=== PATIENT | female | born 1965 | race Two or more races ===

== ENCOUNTER 2018-12-17 21:32 | Emergency (ER) | payer OTHER ==
[~2018-12-17] VITALS: Ht 157.5 cm; Wt 88.9 kg
--- OUTSIDE RECORDS SUMMARY | ~2018-12-17 | XMS | Encounter Summary ---
Demographics + + + | Address | [address] | | | [place] [address] | + + + | Home Phone | | + + + | Preferred Language | Unknown | + + + | Marital Status | | + + + | Mormonism Affiliation | Unknown | + + + | Race | Unknown | + + + | Ethnic Group | Unknown | + + + Author + + + | Author | [facility] | + + + | Organization | [facility] | + + + | Address | Unknown | + + + | Phone | Unavailable | + + + Support + + +---------+ + | Name | Relationship | Address | Phone | + + +---------+ + | Bin Schultz | ECON | Unknown | | + + +---------+ + Care Team Providers + +------+ + | Care Vocational Education Teacher Name | Role | Phone | + +------+ + | Jesús Ivy DO | PCP | | + +------+ + Reason for Visit +--------+ + | Reason | Comments | +--------+ + | Other | | +--------+ + Consult and Treat (Routine) + +--------+ + + + + | Status | Reason | Specialty | Diagnoses / | Referred By | Referred To | | | | | Procedures | Contact | Contact | + +--------+ + + + + | Authorized | | Dermatology / | Diagnoses | [facility] | [facility] | | | | Plastic | Urticaria, | Jesús Garduno DO | Surgery [address] | | | | Surgery | unspecified | [address] | [place] | | | | | | [address] | [address] | | | | | | [address] | [place], [place] | | | | | | [place], | [address] | | | | | | [place] | Phone: | | | | | | [address] | [phone] | | | | | | Phone: | Fax: | | | | | | [phone] | [phone] | | | | | | Fax: | | | | | | | [phone] | | + +--------+ + + + + Encounter Details +--------+---------+ + + + | Date | Type | Department | Care Team | Description | +--------+---------+ + + + | 11/06/ | Office | [facility] | Heavenly Woodruff | Seborrheic | | 2019 | Visit | Plastic Surgery and | [address] | dermatitis (Primary | | | | Dermatology [address] | [address] | Dx); Atopic | | | | [address] | [place] [address] | dermatitis, | | | | [place], [place] | [phone] | unspecified type | | | | [address] | | | | | | [phone] | | | +--------+---------+ + + + Social History + +-------+ +--------+------+ | Tobacco Use | Types | Packs/Day | Years | Date | | | | | Used | | + +-------+ +--------+------+ | Never Assessed | | | | | + +-------+ +--------+------+ + + + | Sex Assigned at | Date Recorded | | | | + + + | Not on file | | + + + as of this encounter Last Filed Vital Signs + + + + | Vital Sign | Reading | Time Taken | + + + + | Blood Pressure | - | - | + + + + | Pulse | - | - | + + + + | Temperature | - | - | + + + + | Respiratory Rate | - | - | + + + + | Oxygen Saturation | - | - | + + + + | Inhaled Oxygen | - | - | | Concentration | | | + + + + | Weight | 90.7 kg (200 lb) | 11/06/2018 10:33 AM PST | + + + + | Height | - | - | + + + + | Body Mass Index | - | - | + + + + in this encounter Instructions Patient Instructions - Hiral Henderson MA - 11/06/2018 10:30 AM PSTFormatting of thi s note may be different from the original. Barrier Care: Soap: Dove sensitive skin Lotion:(Aveeno, Vanicream, cetaphil or cerave) as long as no color or fragrance. Best appli ed to WET skin. If second layer is necessary (Vaseline petroleum jelly) or the like Itch: 1st generation antihistamine (atarax or Benadryl) as needed for breakthrough itch. 2nd generation antihistamine: (Cetirizine or loratadine) every night Avoid possible contact irritants: Change due to possible contact irritants: No color or fragrance Laundry Detergent: Free and Gentle (ALL/Tide) Fabric Softener: Free and Gentle (Downy) Dryer Sheets: Free and Gentle (Bounce) Apply lotion to wet skin twice daily. After shower leave skin damp or apply a small amount of water to skin from skin and then apply lotion. Use lotions free of fragrance and dyes- g ood choices are Aveeno, Cetaphil, or CeraVe. Visit Diagnoses and Associated Orders: Randi was seen today for other. Seborrheic dermatitis - ketoconazole (NIZORAL) 2 % shampoo; Apply 1-3 times weekly to a damp scalp. Massage i n and allow to set for 3-5 minutes before rinsing. - clobetasol (TEMOVATE) 0.05 % external solution; Apply to areas of rash on a clean dam p scalp once daily. Massage in and DO NOT RINSE. Atopic dermatitis, unspecified type - triamcinolone (KENALOG) 0.025 % cream; apply - cetirizine (ZYRTEC) 10 MG tablet; Take 1 tablet by mouth daily. Qu es la dermatitis seborreica? La dermatitis seborreica es un tipo comn de erupcin que hace que la piel se enrojezca, tenga escamas y grasitud. Aparece en la piel que tiene glndulas sebceas, augie en la karen , el cuero cabelludo y la parte superior del pecho. Tiende a durar mucho tiempo o a irse y r egresar. La dermatitis seborreica no se propaga de dhara persona a otra. Cules son las causas de la dermatitis seborreica? No se sabe an cul es la causa. En parte, puede deberse a un tipo de levadura que crece en la piel, junto con un exceso de grasitud. Los expertos siguen estudiando esta afeccin. Es ms comn en los hombres que en las mujeres y puede ocurrir a cualquier edad. Sucede co n ms frecuencia en las personas que tienen VIH/SIDA, enfermedad de Parkinson, pancreatitis alcohlica, hepatitis o cncer. Rosie puede empeorar liv los momentos de estrs. Sntomas de la dermatitis seborreica Los sntomas pueden incluir las siguientes cosas en la piel: Bultos Escamas o costras amarillentas Grietas Grasitud Picazn Supuracin de lquido Dolor Piel enrojecida o de color naranja Estos sntomas pueden darse en la piel de: Alrededor de la nariz Detrs de las orejas La myers Las adamaris El cuero cabelludo, tambin conocido augie caspa La parte superior del pecho Tambin es posible que tenga acn, los prpados inflamados (blefaritis) u otras afeccion es de la piel al mismo tiempo. Tratamiento para la dermatitis seborreica El tratamiento puede disminuir los sntomas liv cierto tiempo. Los tipos de tratamient os que se usan con ms frecuencia incluyen: [place], enjuague corporal o crema antimicticos. Contienen medicamentos tales augie ket oconazol, fluconazol, sulfuro de selenio, ciclopirox o aceite del rbol del t. Crema o pomada con corticosteroides. Contienenmedicamentos tales comohidrocortisona o ac etnido de fluocinolona. Crema o pomadainhibidora de la calcineurina. Contienen medicamentos tales augie pimecroli mus o tacrolimus. [place] o crema con otros medicamentos. Contienen medicamentos tales augie alquitrn de hulla, cido saliclico o piritiona de zinc. Cremas y enjuagues con sulfacetamida sdica. Tambin pueden ser de ayuda. Lave sanchez piel con suavidad. Puede quitarse las escamas con aceite o un cepillo, restregando muy suavemente. Shopping Centre Manager vivir con dermatitis seborreica La dermatitis seborreica es dhara afeccin crnica (continua). Puede irse y luego volver. P robablemente necesitar usar champ, crema o pomada con medicamento dhara o dos veces a la s emana. [place] puede ayudar a prevenir que los sntomas regresen o empeoren. Cundo llamar a sanchez proveedor de atencin mdica Llame a sanchez proveedor de atencin mdica de inmediato si nota alguno de los siguientes s ntomas: Los sntomas no mejoran, o empeoran Aparecen sntomas nuevos Date Last Reviewed: 01/17/201619992790-8215 [employer]. [address] [place] [address]. All righ ts reserved. This information is not intended as a substitute for professional medical care. Always follow your healthcare professional's instructions. in this encounter Progress Notes Heavenly Woodruff ARNP - 11/06/2018 10:30 AM PSTFormatting of this note may be differ ent from the original. Subjective: Patient ID: Randi Luke is a 53 y.o. female. New patient is here with interpeter for a rash that has been present throughout whole body. Patient state this has been ongoing for over 1 year . Patient states she gets itchy, irrita ting and treated with oral medication with no improvement (unknown name medication) with no improvement. The following portions of the patient's history were reviewed and updated as appropriate an d is available elsewhere in the record: allergies, current medications, past family history, past medical history, past social history, past surgical history and problem list. Review of Systems Constitutional: Negative. Skin: Negative. SKIN All other systems reviewed and are negative. Objective: Physical Exam Constitutional: She is oriented to person, place, and time. She appears well-developed and well-nourished. Eyes: Pupils are equal, round, and reactive to light. Neurological: She is alert and oriented to person, place, and time. Skin: Skin is warm. Scaling and erythema present diffusely throughout scalp. Erythematous, itchy, scaling patches of skin on the body in conjunction with overall xeroti c skin Assessment and Plan: Assessment seborrheic dermatitis. We discussed that this is an overgrowth of yeast on the s kin and the chronicity and high probability of recurrence in the future. I discussed the di fference in strength with over the counter and with prescription shampoos/ solutions for thi s problem. Assessment adult atopic dermatitis. I discussed this dry skin condition and the chronic alfred ure of this problem related to aging skin. I discussed using topical steroids to stop the it ch. I also discussed good skin hydration techniques by applying thick creams or non medicate d ointment to wet skin twice daily. After shower leave skin damp or apply a small amount of water to skin from skin and then apply lotion. Good choices include Vanicream, Cerave, Ceta deborah, or Vaseline plain ointment. - Patient will change barrier care and used medication prescribed until follow up. - Patient will follow up in 8 weeks. Visit Diagnoses and Associated Orders: Randi was seen today for other. Seborrheic dermatitis - ketoconazole (NIZORAL) 2 % shampoo; Apply 1-3 times weekly to a damp scalp. Massage i n and allow to set for 3-5 minutes before rinsing. - clobetasol (TEMOVATE) 0.05 % external solution; Apply to areas of rash on a clean dam p scalp once daily. Massage in and DO NOT RINSE. Atopic dermatitis, unspecified type - triamcinolone (KENALOG) 0.025 % cream; apply - cetirizine (ZYRTEC) 10 MG tablet; Take 1 tablet by mouth daily. IHiral CMA, am scribing for, and in the presence of JOHANNY Ortiz , PERCUSSION TUNER-BC, MARIBETH IHeavenly FNP, DCNP, personally performed the services described in this documen tation, as scribed by Hiral Castellon CMA, in my presence, and it is both accurate and complete. in this encounter Plan of Treatment +--------+ + + + + | Date | Type | Specialty | Care Team | Description | +--------+ + + + + | 01/09/ | Office | Plastic Surgery | Heavenly Woodruff | | | 2018 | Visit | | [address] | | | | | | [facility] | | | | | | [place] [address] | | | | | | [phone] | | | | | | | | +--------+ + + + + | 08/27/ | Documentati | Medical Records | Leticia Chun | | | 2018 | on Only | | Record [address] | | | | | | [address] [facility] | | | | | | [place] [address] | | | | | | [phone] | | | | | | | | +--------+ + + + + as of this encounter Visit Diagnoses + + | Diagnosis | + + | Seborrheic dermatitis - Primary | + + | Seborrheic dermatitis, unspecified | + + | Atopic dermatitis, unspecified type | + +"
--- OUTSIDE RECORDS SUMMARY | ~2018-12-17 | XMS | Clinical Summary ---
Demographics + + + | Address | [address] | | | [place] [address] | + + + | Home Phone | | + + + | Preferred Language | Unknown | + + + | Marital Status | | + + + | Adventism Affiliation | Unknown | + + + | Race | Unknown | + + + | Ethnic Group | Unknown | + + + Author + + + | Author | [facility] | + + + | Organization | [facility] | + + + | Address | Unknown | + + + | Phone | Unavailable | + + + Support + + +---------+ + | Name | Relationship | Address | Phone | + + +---------+ + | Bin Schultz | ECON | Unknown | | + + +---------+ + Care Team Providers + +------+ + | Care Set Making Machine Operator Name | Role | Phone | + +------+ + | Jesús Ivy DO | PP | | + +------+ + Allergies No Known Allergies Current Medications + + + +---------+------+------+-------+ | Prescription | Sig. | Disp. | Refills | Star | End | Statu | | | | | | t | Date | s | | | | | | Date | | | + + + +---------+------+------+-------+ | levothyroxine | Levothyroxine 125 | | | | | Activ | | (SYNTHROID) 125 MCG | Mcg(LEVOTHYROXINE | | | | | e | | tablet | SODIUM) 125 MCG | | | | | | | | TABLETDose: 125 MCG | | | | | | + + + +---------+------+------+-------+ | clobetasol | Apply to areas of | 50 mL | 11 | 10/19 | 10/19 | Activ | | (TEMOVATE) 0.05 % | rash on a clean damp | | | 06/07 | 06/07 | e | | external | scalp once daily. | | | 19 | 20 | | | solutionIndications: | Massage in and DO | | | | | | | Seborrheic | NOT RINSE. | | | | | | | dermatitis | | | | | | | + + + +---------+------+------+-------+ | triamcinolone | Apply 1-2 times | 453.6 g | 5 | 10/19 | 10/19 | Activ | | (KENALOG) 0.025 % | daily to affected | | | 06/07 | 06/07 | e | | creamIndications: | areas of rash. Best | | | 19 | 20 | | | Atopic dermatitis, | applied to damp | | | | | | | unspecified type | skin. | | | | | | + + + +---------+------+------+-------+ | cetirizine | Take 1 tablet by | 30 | 11 | 10/19 | 10/19 | Activ | | (ZYRTEC) 10 MG | mouth nightly. | tablet | | 06/07 | 06/07 | e | | tabletIndications: | | | | 19 | 20 | | | Atopic dermatitis, | | | | | | | | unspecified type | | | | | | | + + + +---------+------+------+-------+ | ketoconazole | Apply 1-3 times | 120 mL | 11 | 10/19 | 11/17 | Expir | | (NIZORAL) 2 % | weekly to a damp | | | 06/07 | 10/07 | ed | | shampooIndications: | scalp. Massage in | | | | | | | Seborrheic | and allow to set for | | | | | | | dermatitis | 3-5 minutes before | | | | | | | | rinsing. | | | | | | + + + +---------+------+------+-------+ Active Problems No known active problems Encounters +--------+---------+ + + + | Date | Type | Specialty | Care Team | Description | +--------+---------+ + + + | 11/06/ | Office | | Heavenly Woodruff | Seborrheic | | 2019 | Visit | | [address] | dermatitis (Primary | | | | | | Dx); Atopic | | | | | | dermatitis, | | | | | | unspecified type | +--------+---------+ + + + from Last 3 Months Immunizations + + + + | Name | Dates Previously Given | Next Due | + + + + | H1N1 Monovalent 2009 | 09/17/2009 | | + + + + | Hepatitis A Adult | 09/15/2017, 03/29/2013 | | + + + + | Influenza, Trivalent | 08/17/2018, 09/15/2017, 08/07/2015, | | | W/Preservative | 07/23/2010, 11/13/2008 | | + + + + | MMR | 09/15/2017, 04/16/2010 | | + + + + | Tdap | 09/15/2017, 04/16/2010 | | + + + + Social History + +-------+ [...] on file | | + + + Last Filed Vital Signs + + + [...] | - | + + + + Plan of Treatment +--------+ + + + + | Date | Type | Specialty | Care Team | Description | +--------+ + + + + | 01/09/ | Office | | Heavenly Woodruff | | | 2018 | Visit | | [address] | | | | | | [address] | | | | | | [place] [address] | | | | | | [phone] | | | | | | | | +--------+ + + + + | 08/27/ | Documentati | | See, Medical | | | 2019 | on Only | | Record [address] | | | | | | [address] [place] [place] | | | | | | [place] [address] | | | | | | [phone] | | | | | | | | +--------+ + + + + + + + + + | Health Maintenance | Due Date | Last Done | Comments | + + + + + | Cervical Cancer | | | | | Screening (Pap) | 6 | | | + + + + + | Breast Cancer | | | | | Screening | 6 | | | | (Mammogram) | | | | + + + + + | Colon Cancer | | | | | Screening | 6 | | | | (Colonoscopy) | | | | + + + + + | Vaccine: Zoster (1 | | | | | of 2) | 6 | | | + + + + + | Vaccine: | | 09/15/2017, 04/16/2010 | | | Dtap/Tdap/Td (3 - | 7 | | | | Td) | | | | + + + + + | Vaccine: Influenza | Completed | 08/17/2018, 09/15/2017, | | | | | 08/07/2015, Additional history | | | | | exists | | + + + + + Results Not on filefrom Last 3 Months Insurance + +--------+ +------+-------+ + | Payer | Benefi | Subscriber | Type | Phone | Address | | | t Plan | ID | | | | | | / | | | | | | | Group | | | | | + +--------+ +------+-------+ + | MEDICAID | [place] | [id number] | | | [address] | | | [place] | | | | [place] | | | [place] | | | | [phone] | | | [employer] | | | | | + +--------+ +------+-------+ + + +--------+ +--------+ + + | Guarantor Name | Accoun | Relation to | Date | Phone | Billing Address | | | t Type | Patient | of | | | | | | | | | | + +--------+ +--------+ + + | RANDI GONSALES | Person | Self [birth year] Home: | [address] | | | al/Fam | | 1965 | [phone] | [place] | | | [place] | | [phone] | + +--------+ +--------+ + +"
[2018-12-17] MEDS ORDERED: ASPIRIN EC325 MG PO (21:58)
[2018-12-17] MEDS ORDERED: OXYCODONE HCL5 MG PO (21:59)
[2018-12-17] MEDS ORDERED: NEURONTIN300 MG PO (21:59)
== END 2018-12-17 23:35 | disposition home or self-care (01) ==
LOC: ED 21:32
DX: M96.840 Postprocedural hematoma of a musculoskeletal structure following a musculoskeletal system procedure (principal); M25.461 Effusion, right knee; Z79.82 Long term (current) use of aspirin; Z79.899 Other long term (current) drug therapy
CPT/HCPCS: 93971; 99283-25